=== PATIENT | male | born 1960 | race Caucasian/White ===

== ENCOUNTER 2016-05-23 19:45 | Outpatient (CLI) | payer OTHER ==
[~2016-05-23 19:45] MED LIST: ATOR20TA66 PO; LISI20TA PO
--- OUTSIDE RECORDS SUMMARY | 2016-05-23 19:52 | XMS REPORT | Continuity of Care Document ---
Author Author [facility] Organization [facility] Address Unknown Phone Unavailable Allergies Active Description Code Type Severity Reaction Onset Reported/Identified Relationship to Patient Clinical Status Yes No Known Drug Allergies [id number] Drug Allergy Unknown N/ A 11/01/2010 Medications Problems Date Dx Coded Attending Type Code Diagnosis Diagnosed By 11/01/2010 Ot 569.89 11/01/2010 Ot V16.0 11/01/2010 Ot V67.09 04/17/2013 BHARATH SERRANO DO Ot 327.23 OBSTRUCTIVE SLEEP APNEA (ADULT) (PEDIATR 04/17/2013 BHARATH SERRANO DO Ot 327.51 PERIODIC LIMB MOVEMENT DISORDER 04/17/2013 BHARATH SERRANO DO Ot 401.9 HYPERTENSION NOS 04/24/2014 YESIKA MARIANO, SEAN Hanson Ot V16.0 FAMILY HX-GI MALIGNANCY 04/24/2014 YESIKA MARIANO, SEAN Hanson Ot V76.51 SCREEN MAL NEOP-COLON 04/11/2015 SEAN NAPOLES MD Ot V72.84 04/11/2015 SEAN NAPOLES MD Ot V72.84 04/25/2016 SEAN NAPOLES MD Ot V72.84 EXAM PRE-OPERATIVE NOS Procedures Results Encounters ACCT No. Visit Date/Time Discharge Status Pt. Type Provider Facility Loc./Unit Complaint [id number] 04/24/2014 07:29:00 2014 10:15:00 DIS Outpatient SEAN NAPOLES MD [facility] SDC SCREENING [id number] 04/22/2014 05:52:00 2014 23:59:59 CLS Outpatient SEAN NAPOLES MD [facility] PREOP SCREENING [id number] 04/16/2013 19:53:00 2013 04:40:00 DIS Outpatient BHARATH SERRANO DO [facility] SLEEP OA,SNORING,CHOKING,GASPING,HTN,EDS [id number] 11/01/2010 08:03:00 Document Registration
== END 2016-05-24 05:05 | disposition home or self-care (01) ==
LOC: SLEEP 19:45
PROVIDERS: ATTEND Internal Medicine Critical Care Medicine
DX: G47.30 Sleep apnea, unspecified (principal); R06.83 Snoring; I10 Essential (primary) hypertension; R05 Cough
CPT/HCPCS: 95811

== ENCOUNTER 2019-04-14 08:54 | Outpatient (CLI) | payer BC ==
[~2019-04-14] VITALS: Ht 177 cm; Wt 97.5 kg
[2019-04-14] MEDS ORDERED: ATOR40TA70 PO (09:05)
[2019-04-14 09:08] VITALS: BP 145/88
[2019-04-14 09:36] LABS: BASOPHILS % (AUTO) 1 % (0-10); EOSINOPHILS # (AUTO) 0.1 10^3/uL (0.0-0.3); EOSINOPHILS % (AUTO) 3 % (0-10); HEMATOCRIT 46 % (40-54); HEMOGLOBIN 14.7 G/DL (13.3-17.7); LYMPHOCYTES # (AUTO) 1.1 X 10^3 (1.0-4.0); LYMPHOCYTES % (AUTO) 27 % (12-44); MEAN CORPUSCULAR HEMOGLOBIN 30 PG (25-34); MEAN CORPUSCULAR HGB CONC 32 G/DL (32-36); MEAN CORPUSCULAR VOLUME 93 FL (80-99); MEAN PLATELET VOLUME 11.9 FL (7.4-10.4); MONOCYTES # (AUTO) 0.4 X 10^3 (0.0-1.0); MONOCYTES % (AUTO) 9 % (0-12); NEUTROPHILS # (AUTO) 2.6 X 10^3 (1.8-7.8); NEUTROPHILS % (AUTO) 61 % (42-75); PLATELET COUNT 127 10^3/uL (130-400); RED CELL DISTRIBUTION WIDTH 14.8 % (10.0-14.5); WHITE BLOOD COUNT 4.2 10^3/uL (4.3-11.0)
[2019-04-14 09:38] LABS: BILIRUBIN,URINE NEGATIVE (NEGATIVE); CLARITY,URINE CLEAR; COLOR,URINE YELLOW; GLUCOSE, URINE (UA) NEGATIVE (NEGATIVE); KETONES,URINE NEGATIVE (NEGATIVE); LEUKOCYTE ESTERASE ,URINE NEGATIVE (NEGATIVE); NITRITE,URINE NEGATIVE (NEGATIVE); PH,URINE 5.5 (5-9); PROTEIN,URINE NEGATIVE (NEGATIVE)
[2019-04-14 09:44] LABS: BACTERIA,URINE NEGATIVE /HPF; SQUAMOUS EPITHELIAL CELL,UR RARE /HPF
[2019-04-14 09:48] LABS: PROTHROMBIN TIME PATIENT 13.3 SEC (12.2-14.7)
[2019-04-14 09:53] LABS: CALCIUM 9.3 MG/DL (8.5-10.1); CREATININE SERUM 1.38 MG/DL (0.60-1.30)
--- NOTE | 2019-04-14 09:57 | Diagnostic Imaging Report ---
INDICATION: Preoperative for left knee arthroplasty. TIME OF EXAM: 9:38 AM No prior studies are available for comparison. FINDINGS: The heart size is normal. The pulmonary vascularity is unremarkable. The lungs are clear. No infiltrate, effusion or pneumothorax is detected. IMPRESSION: No acute cardiopulmonary process is detected. Dictated by: Dictated on workstation # [id number]
== END 2019-04-14 10:27 | disposition home or self-care (01) ==
LOC: PREOP 08:54
PROVIDERS: ATTEND Orthopaedic Surgery
DX: Z01.818 Encounter for other preprocedural examination (principal); M17.12 Unilateral primary osteoarthritis, left knee
CPT/HCPCS: 36415; 71046; 80048; 81000; 85025; 85610; 86850; 86900; 86901; 87081; 93005

== ENCOUNTER 2019-06-13 10:05 | Outpatient (RCR) | payer BC ==
[~2019-06-13 10:05] MED LIST changes: +ASPI325T32 PO; +ATOR40TA70 PO; +FLUT9.9S NS; +IBUP-30 PO; +MAGN400O7 PO; +NAPR220T66 PO; +OXYC1TAB12 PO
== END 2019-06-13 13:26 | disposition home or self-care (01) ==
PROVIDERS: ATTEND Orthopaedic Surgery
DX: Z47.1 Aftercare following joint replacement surgery (principal); Z96.652 Presence of left artificial knee joint

== ENCOUNTER 2019-10-27 08:10 | Outpatient (RCR) | payer BC ==
[~2019-10-27] VITALS: Ht 177 cm; Wt 100.0 kg
[2019-10-27] MEDS ORDERED: CETI10TA17 PO ×2 (08:39)
== END 2019-10-27 14:24 | disposition home or self-care (01) ==
LOC: PREOP 08:10
PROVIDERS: ATTEND Internal Medicine
DX: Z01.812 Encounter for preprocedural laboratory examination (principal); Z12.11 Encounter for screening for malignant neoplasm of colon; Z20.828 Contact with and (suspected) exposure to other viral communicable diseases
CPT/HCPCS: 87635

== ENCOUNTER 2019-10-31 10:15 | Day surgery (SDC) | payer BC ==
--- NOTE | 2019-10-20 08:31 | HISTORY AND PHYSICAL ---
DATE OF SERVICE: COLONOSCOPY HISTORY AND PHYSICAL DATE OF ADMISSION: 10/31/2019. HISTORY OF PRESENT ILLNESS: The patient is a 59-year-old white male seen for yearly wellness evaluation on 10/15/2019. He reports that he has been feeling relatively well. He had left total knee replacement due to arthritis. Reports that left knee is fine. He has been having some right ankle pain, gets a little bit worse with walking, but he is continuing, albeit at a slower pace to get in 12,000 to 13,000 steps in. It is lateral right ankle pain. He has a past history of colon polyps. His last colonoscopy was done in 2014 in April. He had no polyps on that colonoscopy, but there is a family history of colon cancer index case being his grandmother diagnosed in her early 70s. He denies any bowel habit change and has noted no bright red blood per rectum or melena. PAST MEDICAL HISTORY: Significant for hypertension and obstructive sleep apnea as well as osteoarthritis. He has no known history of coronary artery disease. FAMILY HISTORY: Father in his early 80s of complications of vascular disease. Mother living with hypertension in her early 80s. She also has hyperlipidemia and grandmother with colon cancer diagnosed in her 70s. SOCIAL HISTORY: He is employed at [employer], , with adult children, with no past smoking or drinking history. He walks on a regular basis, 5 to 6 miles per day. PHYSICAL EXAMINATION: GENERAL: Reveals a well-appearing white male in no acute distress. VITAL SIGNS: Weight was up 6 pounds to 222.2 and blood pressure 140/70. CHEST: Clear. CARDIOVASCULAR: Reveals a regular rate and rhythm without murmur, S3 or S4. EXTREMITIES: Reveal no cyanosis, clubbing or edema. He has some right lateral joint line ankle pain location, minimal not to palpation. No warmth or erythema is noted. ASSESSMENT AND PLAN: 1. The patient is set up for screening colonoscopy on 10/30. Preop instructions and Suprep kit were given and questions were answered. 2. Hypertension, under good control. 3. Right ankle pain, possible arthritis related, ibuprofen prior to walks. If it is getting worse, he is advised to follow up with Dr. Maier, orthopedic commissioning specialist. I will see him back in 6 months. Job ID: [id number] DocumentID: [id number] Dictated Date: 10/15/2019 16:13:06 Campus Ambassador Date: 10/15/2019 16:41:13 Dictated By: SEAN NAPOLES MD
[2019-10-31] VITALS (11 sets, daily range): BP systolic 102–161; BP diastolic 55–73
[~2019-10-31] VITALS: Ht 177 cm; Wt 100.0 kg
--- NOTE | 2019-10-31 09:56 | Pre-Op Note & Conscious Sedat ---
Pre-Operative Progress Note H&P Reviewed The H&P was reviewed, patient examined and no changes noted. Date H&P Reviewed: Oct 31, 2019 Time H&P Reviewed: 09:30 Conscious Sedation Pre-Proced ASA Score 2 For ASA 3 and 4: Consider anesthesia and medical clearance. Also, for patients with a history of failed moderate sedation consider anesthesia. Airway Lungs Heart ASA score ASA 1: a normal healthy patient ASA 2: a patient with a mild systemic disease (mid diabetes, controlled hypertension, obesity ASA 3: a patient with a severe systemic disease that limits activity (angina, COPD, prior Myocardial infarction) ASA 4: a patient with an incapacitating disease that is a constant threat to life (CHF, renal failure) ASA 5: a moribund patient not expected to survive 24 hrs. (ruptured aneurysm) ASA 6: a declared brain- patient whose organs are being harvested. For emergent operations, add the letter E after the classification Mallampati Classification Grade 3 Sedation Plan Analgesia, Amnesia, Plan communicated to team members, Discussed options with patient/fam, Discussed risks with patient/fam The patient is an appropriate candidate to undergo the planned procedure, sedation, and anesthesia. The patient immediately re-assessed prior to indication. SEAN NAPOLES MD Oct 31, 2019 09:56
[~2019-10-31 10:15] MED LIST changes: +CETI10TA17 PO; +D5 LR IV SOLUTION 1,000 ML IV ONE; +D5 LR IV SOLUTION 1,000 ML IV STA; +LIDOCAINE JELLY 2% 6 ML SYRINGE MM PRN; +LIDOCAINE JELLY 2% 6 ML SYRINGE ONE; +MIDAZOLAM 5 MG/5 ML (VERSED) VIAL IV PRN; +MIDAZOLAM 5 MG/5 ML (VERSED) VIAL ONE; +SIMETHICONE 40 MG/0.6 ML (MYLICON DROPS) 30 ML BTL ONE; +SIMETHICONE 40 MG/0.6 ML (MYLICON DROPS) 30 ML BTL PO PRN; +fentaNYL INJECTION 100 MCG/2 ML AMP IVP ONE; +fentaNYL INJECTION 100 MCG/2 ML AMP ONE
--- NOTE | 2019-10-31 17:09 | OPERATIVE REPORT ---
DATE OF SERVICE: COLONOSCOPY SUMMARY INDICATION FOR THE PROCEDURE: Screening, family history for colon cancer. DESCRIPTION OF PROCEDURE: The patient was placed in the left lateral decubitus position. Prior to undergoing colonoscopy, digital rectal evaluation was performed. Anal sphincter tone was normal. Perianal reflexes intact. Prostate is normal in size, anodular, nontender to digital inspection. No abnormalities were noted on digital inspection of the anal canal or distal rectal vault. The colonoscope was then inserted into the rectum and under direct visualization advanced to the cecum. The cecum was identified by identification of the ileocecal valve and the cecal strap. Photographic documentation was obtained. Careful inspection was made as the colonoscope was withdrawn. Quality of prep was good. FINDINGS: There was no evidence for internal or external hemorrhoids and the rectum was unremarkable. Present in the rectosigmoid junction was a diminutive hyperplastic-appearing polyp, was biopsied and ablated using hot forceps. The sigmoid colon, descending colon, splenic flexure, transverse colon, hepatic flexure, ascending colon and cecum were unremarkable. ASSESSMENT: One diminutive hyperplastic appearing polyp was removed via hot forceps from the rectosigmoid junction. This was otherwise normal colonoscopy to the cecum. Considering family history, we will be advocating repeat surveillance colonoscopy in 5 years. Job ID: [id number] DocumentID: [id number] Dictated Date: 10/31/2019 11:57:39 Dishwashing Machine Operator Date: 10/31/2019 17:08:18 Dictated By: SEAN NAPOLES MD
--- OUTSIDE RECORDS SUMMARY | 2019-10-31 17:27 | XMS REPORT ---
Author Author [employer] glove examiner [employer] [facility] [place] [employer] [facility] [employer] Address [address] [place] [address] Care Team Providers Care Proofer Prepress Name Role Phone SEAN NAPOLES Unavailable SEAN NAPOLES MD Unavailable Unavailable BHARATH SERRANO DO Unavailable Unavailable RAY SANTO DO Unavailable Unavailable RAY SANTO DO Unavailable Unavailable SEAN NAPOLES MD Unavailable Unavailable BHARATH SERRANO DO Unavailable Unavailable Unavailable Unavailable Unavailable Unavailable Allergies The data below is from unstructured sources Allergen Type Severity Reaction Status Last Updated No Known Drug Allergies Active 11/01/10 Encounters Encounter Date Encounter Type Encounter Diagnosis Care Provider Facility Start: Patient encounter SEAN NAPOLES MD [facility] 10-31-2019 [facility] Start: Patient encounter SEAN NAPOLES MD [facility] 10-27-2019 [facility] End: 10-27-2019 Start: Patient encounter SEAN NAPOLES MD [facility] 10-23-2019 [facility] Start: Patient encounter RAY SANTO DO [facility]06-13-2019 [facility] End: 06-13-2019 Start: Patient encounter RAY SANTO DO [facility] 06-11-2019 [facility] Start: Patient encounter RAY SANTO DO [facility] 06-09-2019 [facility] Start: Patient encounter RAY SANTO DO [facility] 06-06-2019 [facility] Start: Patient encounter RAY SANTO DO [facility] 06-04-2019 [facility] Start: Patient encounter RAY SANTO DO [facility] 06-02-2019 [facility] Start: Patient encounter RAY SANTO DO [facility] 05-30-2019 [facility] Start: Patient encounter RAY SANTO DO [facility] 05-28-2019 procedure [facility] Start: Patient encounter RAY SANTO DO [facility] 05-26-2019 procedure [facility] Start: Patient encounter RAY SANTO DO [facility] 05-23-2019 procedure [facility] Start: Patient encounter RAY SANTO DO [facility] 05-21-2019 procedure [facility] Start: Patient encounter RAY SANTO DO [facility] 05-19-2019 procedure [facility] Start: Patient encounter RAY SANTO DO [facility] 05-16-2019 procedure [facility] Start: Patient encounter RAY SANTO DO [facility] 05-14-2019 procedure [facility] Start: Patient encounter RAY SATNO DO [facility] 05-12-2019 procedure [facility] Start: Evaluation and RAY SANTO DO [facility] 04-22-2019 management of [facility] inpatient End: 04-24-2019 Start: Patient encounter RAY SANTO DO [facility] 04-22-2019 procedure [facility] End: 04-24-2019 Start: Patient encounter RAY SANTO DO [facility] 04-14-2019 procedure [facility] ([id number]) End: 04-14-2019 Start: Patient encounter BHARATH SERRANO DO [facility] 05-23-2016 procedure [facility] End: 05-24-2016 Start: Patient encounter SEAN NAPOLES MD [facility] ([id number]) 04-24-2014 procedure End: 04-24-2014 Start: Patient encounter BHARATH SERRANO DO [facility] ([id number]) 04-16-2013 procedure End: 04-17-2013 EXAM PRE-OPERATIVE Pre-operative SEAN NAPOLES MD [facility] ([id number]) NOS examination, unspecified Medical Equipment No Information Goals No Information Immunizations The data below is from unstructured sourcesNo immunization records.No immunization records.No immunization records. Interventions No Information Medications No Information Payers No Information Plan of Treatment The data below is from unstructured sources Discharge Date 05/24/16 5:05am Prescriptions See Medication Section No plan of care. Problems Problem Problem Date Last Documented Episodic/Chr Provider Classificati Recorded Date onic on Disorders of Hyperlipidemia, unspecified 10-31-2019 Chronic RAY lipid HANSA DO metabolism (10 sources) Essential Unspecified essential hypertension 10-31-2019 Flow Floor Attendant debbi BHARATH SERRANO hypertension ; Translations: [Essential DO (18 sources) (primary) hypertension] Osteoarthrit Unilateral primary osteoarthritis, 10-31-2019 Chr onic RAY is left knee HANSA DO (10 sources) Other Aftercare following joint Chronic RO PATIENCE aftercare replacement surgery HANSA DO (1 source) Other Presence of left artificial knee Chronic RAY connective joint HANSA DO tissue disease (15 sources) Other lower Cough 10-31-2019 Episodic BHARATH MAGGIE respiratory DO disease (5 sources) Other lower Snoring 10-31-2019 Episodic BHARATH MAGGIE respiratory DO disease (5 sources) Other Special screening for malignant Episodic SEAN NAPOLES screening neoplasms of colon MD for suspected conditions (not mental disorders or infectious disease) (3 sources) Residual Periodic limb movement disorder ; Chronic BHARATH MAGGIE codes; Translations: [PERIODIC LIMB DO unclassified MOVEMENT DISORDER] (5 sources) Residual Sleep apnea, unspecified 10-31-2019 Chronic J ASON MAGGIE codes; DO unclassified (5 sources) Residual Obstructive sleep apnea (adult) 10-31-2019 Chronic RAY codes; (pediatric) HANSA DO unclassified (10 sources) Residual Family history of malignant Episodic SEAN NAPOLES codes; neoplasm of gastrointestinal tract MD unclassified (3 sources) Procedures Date Procedure Procedure Detail Performing Cl inician Start: REPLACE OF L KNEE RAY HANSA DO 04-22-2019 JT WITH SYNTH SUB, ELFEGO Results The data below is from unstructured sourcesNo known relevant diagnostic tests, laboratory data and/or discharge summary.No known relevant diagnostic tests, laboratory data and/or discharge summary.No known relevant diagnostic tests, laboratory data and/or discharge summary. Social History No Information Vital Signs The data below is from unstructured sources Vital Response Date/Time Temperature (Fahrenheit) 96.7 degree s F (97.6 - 99.5) Temperature (Calculated Celsius) 35. 50903 degrees C (36.4 - 37.5) Temperature Source Tympanic Pulse Rate (adult) 61 bpm (60 - 90) Respiratory Rate 18 bpm (12 - 24) O2 Sat by Pulse Oximetry 100 % (88 - 100) Blood Pressure 124/84 mm Hg Pain Pain Intensity 0 Height (Feet) 5 feet Height (Inches) 10.00 inches Height (Calculated Centimeters) 177. 712482 cm Weight (Pounds) 180 pounds Weight (Calculated Grams) 55838.627 gm Weight (Calculated Kilograms) 81.646 627 kilograms Height 5 ft 10 in Weight 180 lb Body Mass Index 25.8 kg/m^2 Functional Status The data below is from unstructured sourcesNo functional status results.No functional status results.No functional status results. Mental Status No Information Advance Directives Directive Response Recor ded Date/Time Advance Directives No 11:18am Health Care Power of Vocational Training Teacher No 04/24/14 11:18am Organ Donor Yes 04/24/14 11:18am Directive Response Recor ded Date/Time Advance Directives No 11:18am Health Care Power of Vocational Training Teacher No 04/24/14 11:18am Organ Donor Yes 04/24/14 11:18am Resuscitation Status Full Code 04/24/14 11:18am Discharge Instructions No hospital discharge instructions.No hospital discharge instructions. Additional Source Comments This clinical document has been generated using [employer] software that has been certified by the Office of the National Coordinator for Health Information Technology (ONC 15.99.04.3023.Diam.31.00.0.271539) and the National Committee for Driver Education Instructor (NCQA, as an eMeasure certified technology). FOR RECORDS PERTAINING TO PATIENTS WHO ARE OR HAVE BEEN ENROLLED IN A CHEMICAL D EPENDENCY/SUBSTANCE ABUSE PROGRAM, SOME INFORMATION MAY BE OMITTED. This clinica l summary was aggregated from multiple sources. Caution should be exercised in using it in the provision of clinical care. This summary normalizes information from multiple sources, and as a consequence, information in this document may ma terially change the coding, format and clinical context of patient data. In georgi tion, data may be omitted in some cases. CLINICAL DECISIONS SHOULD BE BASED ON T HE PRIMARY CLINICAL RECORDS. [employer] provides no warranty or guara ntee of the accuracy or completeness of information in this document.The followi ng information is based on time limited clinical information
--- OUTSIDE RECORDS SUMMARY | 2019-10-31 17:27 | XMS REPORT | Continuity of Care Document ---
Author Organization Unknown Address Unknown Phone Unavailable Allergies Active Description Code Type Severity Reaction Onset Reported/Identified Relationship to Patient Clinical Status Yes No Known Drug Allergies [id number] Drug Allergy Unknown N/A 10/27/2019 Medications There is no data. Problems Date Dx Coded Attending Type Code Diagnosis Diagnosed By 03/01/1325 RAY SANTO DO Ot Z47.1 AFTERCARE FOLLOWING JOINT REPLACEMENT TAVARES 03/01/1325 RAY SANTO DO Ot Z96.652 PRESENCE OF LEFT ARTIFICIAL KNEE JOINT 11/01/2010 Ot 569.89 11/01/2010 Ot V16.0 11/01/2010 Ot V67.09 04/17/2013 BHARATH SERRANO DO Ot 327. 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 9 HYPERTENSION NOS 04/24/2014 YESIKA MARIANO, SEAN Hanson Ot V16. 0 FAMILY HX-GI MALIGNANCY 04/24/2014 YESIKA MARIANO, SEAN Hanson Ot V76. 51 SCREEN MAL NEOP-COLON 04/11/2015 SEAN NAPOLES MD Ot V72. 84 04/11/2015 SEAN NAPOLES MD Ot V72. 84 04/25/2016 SEAN NAPOLES MD Ot V72. 84 EXAM PRE-OPERATIVE NOS 05/23/2016 SEAN NAPOLES MD Ot V72. 84 EXAM PRE-OPERATIVE NOS 05/24/2016 BHARATH SERRANO DO Ot G47. 30 SLEEP APNEA, UNSPECIFIED 05/24/2016 BHARATH SERRANO DO Ot I10 ESSENTIAL (PRIMARY) HYPERTENSION 05/24/2016 BHARATH SERRANO DO Ot R05 COUGH 05/24/2016 BHARATH SERRANO DO Ot R06. 83 SNORING 05/24/2016 BHARATH SERRANO DO Ot G47. 30 SLEEP APNEA, UNSPECIFIED 05/24/2016 BHARATH SERRANO DO Ot I10 ESSENTIAL (PRIMARY) HYPERTENSION 05/24/2016 BHARATH SERRANO DO Ot R05 COUGH 05/24/2016 BHARATH SERRANO DO Ot R06. 83 SNORING 06/13/2016 SEAN NAPOLES MD Ot V72. 84 EXAM PRE-OPERATIVE NOS 01/17/2017 SEAN NAPOLES MD Ot V72. 84 EXAM PRE-OPERATIVE NOS 04/14/2019 HANSA DO, RAY Lopez Ot M17.12 UNILATERAL PRIMARY OSTEOARTHRITIS, LEFT 04/14/2019 HANSA DO, RAY John Ot Z01.818 ENCOUNTER FOR OTHER PREPROCEDURAL EXAMIN 04/24/2019 HANSA DO, RAY John Ot E78.5 HYPERLIPIDEMIA, UNSPECIFIED 04/24/2019 HANSA DO, RAY Lopez Ot G47.33 OBSTRUCTIVE SLEEP APNEA (ADULT) (PEDIATR 04/24/2019 HANSA DO, RAY F Ot I 10 ESSENTIAL (PRIMARY) HYPERTENSION 04/24/2019 HANSA DO, RAY Lopez Ot M17.12 UNILATERAL PRIMARY OSTEOARTHRITIS, LEFT 05/23/2019 HANSA DO, RAY Lopez Ot Z96.652 PRESENCE OF LEFT ARTIFICIAL KNEE JOINT 06/13/2019 HANSA DO, RAY Lopez Ot Z47.1 AFTERCARE FOLLOWING JOINT REPLACEMENT TAVARES 06/13/2019 HANSA DO, RAY F Ot Z96.652 PRESENCE OF LEFT ARTIFICIAL KNEE JOINT Procedures Code Description Performed By Per barrett On [id number] RE PLACE OF L KNEE JT WITH SYNTH SUB, ELFEGO 04/22/2019 Results Test Result Range Complete blood count (CBC) with automate d white blood cell (WBC) differential - 04/14/19 09:20 Blood leukocytes automated count (number/volume) 4.2 10*3/uL 4.3-11.0 Blood erythrocytes automated count (number/volume) 4.91 10*6/uL 4.35-5.85 Venous blood hemoglobin measurement (mass/volume) 14.7 g/dL 13.3-17.7 Blood hematocrit (volume fraction) 46 % 40-54 Automated erythrocyte mean corpuscular volume 93 [ foz_us] 80-99 Automated erythrocyte mean corpuscular h emoglobin (mass per erythrocyte) 30 pg 25-34 Automated erythrocyte mean corpuscular h emoglobin concentration measurement (mass/volume) 32 g/dL 32-36 Automated erythrocyte distribution width ratio 14. 8 % 10.0- 14.5 Automated blood platelet count (count/volume) 127 10*3/uL 130-400 Automated blood platelet mean volume measurement 11.9 [foz_us] 7.4-10.4 Automated blood neutrophils/100 leukocytes 61 % 42-75 Automated blood lymphocytes/100 leukocytes 27 % 12-44 Blood monocytes/100 leukocytes 9 % 0-12 Automated blood eosinophils/100 leukocytes 3 % 0-10 Automated blood basophils/100 leukocytes 1 % 0-10 Blood neutrophils automated count (number/volume) 2.6 10*3 1.8-7.8 Blood lymphocytes automated count (number/volume) 1.1 10*3 1.0-4.0 Blood monocytes automated count (number/volume) 0. 4 10*3 0.0-1.0 Automated eosinophil count 0.1 10*3/uL 0 .0-0.3 Automated blood basophil count (count/volume) 0.0 10*3/uL 0.0-0.1 PT panel in platelet poor plasma by coag ulation assay - 04/14/19 09:20 Prothrombin time (PT) in platelet poor plasma by coagu lation assay 13.3 s 12.2-14.7 INR in platelet poor plasma or blood by coagulation as say 1.0 0.8-1.4 Whole blood basic metabolic panel - 04/02 06/19 09:20 Serum or plasma sodium measurement (moles/volume) 141 mmol/L 135-145 Serum or plasma potassium measurement (moles/volume) 4.0 mmol/L 3.6-5.0 Serum or plasma chloride measurement (moles/volume) 107 mmol/L 98-107 Carbon dioxide 23 mmol/L 21-32 Serum or plasma anion gap determination (moles/volume) 11 mmol/L 5-14 Serum or plasma urea nitrogen measurement (mass/volume ) 16 mg/dL 7-18 Serum or plasma creatinine measurement (mass/volume) 1.38 mg/dL 0.60-1.30 Serum or plasma urea nitrogen/creatinine mass ratio 12 NRG Serum or plasma creatinine measurement w ith calculation of estimated glomerular filtration rate 53 NRG Serum or plasma glucose measurement (mass/volume) 96 mg/dL 70-105 Serum or plasma calcium measurement (mass/volume) 9.3 mg/dL 8.5-10.1 Blood type T Indirect antibody screen pa pauline - 04/14/19 09:20 ABO+Rh group AP NRG Blood group antibody screen NEGATIVE NR G Methicillin resistant Staphylococcus aur eus (MRSA) screening culture - 04/14/19 09:20 Methicillin resistant Staphylococcus aureus (MRSA) scr eening culture NEG NRG Complete urinalysis with reflex to cultu re - 04/14/19 09:25 Urine color determination YELLOW NRG Urine clarity determination CLEAR NR G Urine pH measurement by test strip 5.5 5-9 Specific gravity of urine by test strip <= 1.016-1.022 Urine protein assay by test strip, semi-quantitative NEGATIVE NEGATIVE Urine glucose detection by automated test strip NE GATIVE NEGATIVE Erythrocytes detection in urine sediment by light micr oscopy NEGATIVE NEGATIVE Urine ketones detection by automated test strip NE GATIVE NEGATIVE Urine nitrite detection by test strip NEGATIVE NEGATIVE Urine total bilirubin detection by test strip NEGA TIVE NEGATIVE Urine urobilinogen measurement by automated test strip (mass/volume) 0.2 mg/dL < = 1.0 Urine leukocyte esterase detection by dipstick NEG ATIVE NEGATIVE Automated urine sediment erythrocyte cou nt by microscopy (number/high power field) NONE NRG Automated urine sediment leukocyte count by microscopy (number/high power field) NONE NRG Bacteria detection in urine sediment by light microsco py NEGATIVE NRG Squamous epithelial cells detection in u rine sediment by light microscopy RARE NRG Crystals detection in urine sediment by light microsco py NONE NRG Casts detection in urine sediment by light microscopy NONE NRG Mucus detection in urine sediment by light microscopy NEGATIVE NRG Complete urinalysis with reflex to culture NO NRG Blood type T Indirect antibody screen pa pauline - 04/22/19 08:50 WRISTBAND NUMBER [id number] NRG ABO+Rh group AP NRG Blood group antibody screen NEGATIVE NR G Automated blood complete blood count (he mogram) panel - 04/23/19 05:15 Blood leukocytes automated count (number/volume) 10.1 10*3/uL 4.3-11.0 Blood erythrocytes automated count (number/volume) 3.90 10*6/uL 4.35-5.85 Venous blood hemoglobin measurement (mass/volume) 11.9 g/dL 13.3-17.7 Blood hematocrit (volume fraction) 36 % 40-54 Automated erythrocyte mean corpuscular volume 93 [ foz_us] 80-99 Automated erythrocyte mean corpuscular h emoglobin (mass per erythrocyte) 31 pg 25-34 Automated erythrocyte mean corpuscular h emoglobin concentration measurement (mass/volume) 33 g/dL 32-36 Automated erythrocyte distribution width ratio 14. 4 % 10.0- 14.5 Automated blood platelet count (count/volume) 131 10*3/uL 130-400 Automated blood platelet mean volume measurement 11.9 [foz_us] 7.4-10.4 Whole blood basic metabolic panel - 04/03 05/22 05:15 Serum or plasma sodium measurement (moles/volume) 137 mmol/L 135-145 Serum or plasma potassium measurement (moles/volume) 4.5 mmol/L 3.6-5.0 Serum or plasma chloride measurement (moles/volume) 107 mmol/L 98-107 Carbon dioxide 20 mmol/L 21-32 Serum or plasma anion gap determination (moles/volume) 10 mmol/L 5-14 Serum or plasma urea nitrogen measurement (mass/volume ) 23 mg/dL 7-18 Serum or plasma creatinine measurement (mass/volume) 1.29 mg/dL 0.60-1.30 Serum or plasma urea nitrogen/creatinine mass ratio 18 NRG Serum or plasma creatinine measurement w ith calculation of estimated glomerular filtration rate 57 NRG Serum or plasma glucose measurement (mass/volume) 139 mg/dL 70-105 Serum or plasma calcium measurement (mass/volume) 8.1 mg/dL 8.5-10.1 Automated blood complete blood count (he mogram) panel - 04/24/19 05:45 Blood leukocytes automated count (number/volume) 6.0 10*3/uL 4.3-11.0 Blood erythrocytes automated count (number/volume) 3.66 10*6/uL 4.35-5.85 Venous blood hemoglobin measurement (mass/volume) 11.3 g/dL 13.3-17.7 Blood hematocrit (volume fraction) 35 % 40-54 Automated erythrocyte mean corpuscular volume 95 [ foz_us] 80-99 Automated erythrocyte mean corpuscular h emoglobin (mass per erythrocyte) 31 pg 25-34 Automated erythrocyte mean corpuscular h emoglobin concentration measurement (mass/volume) 33 g/dL 32-36 Automated erythrocyte distribution width ratio 14. 9 % 10.0- 14.5 Automated blood platelet count (count/volume) 101 10*3/uL 130-400 Automated blood platelet mean volume measurement 11.7 [foz_us] 7.4-10.4 Whole blood basic metabolic panel - 04/03 06/19 05:45 Serum or plasma sodium measurement (moles/volume) 141 mmol/L 135-145 Serum or plasma potassium measurement (moles/volume) 4.3 mmol/L 3.6-5.0 Serum or plasma chloride measurement (moles/volume) 110 mmol/L 98-107 Carbon dioxide 21 mmol/L 21-32 Serum or plasma anion gap determination (moles/volume) 10 mmol/L 5-14 Serum or plasma urea nitrogen measurement (mass/volume ) 20 mg/dL 7-18 Serum or plasma creatinine measurement (mass/volume) 1.10 mg/dL 0.60-1.30 Serum or plasma urea nitrogen/creatinine mass ratio 18 NRG Serum or plasma creatinine measurement w ith calculation of estimated glomerular filtration rate > NRG Serum or plasma glucose measurement (mass/volume) 94 mg/dL 70-105 Serum or plasma calcium measurement (mass/volume) 8.1 mg/dL 8.5-10.1 Encounters ACCT No. Visit Date/Time Discharge Status Pt. Type Provider Facility Loc./Unit Complaint [id number] 10/31/2019 10:15:00 11:30:00 DIS Outpatient SEAN NAPOLES MD [facility] ENDO SCREENING [id number] 10/27/2019 08:10:00 14:24:00 DIS Outpatient SEAN NAPOLES MD [facility] PREOP SCREENING [id number] 06/13/2019 10:05:00 13:26:00 DIS Outpatient RAY SANTO DO [facility] REHAB S/P LT TKA [id number] 04/22/2019 08:30:00 12:18:00 DIS Inpatient RAY SANTO DO [facility] 4TH LEFT KNEE OSTEOARTHRIT IS [id number] 04/14/2019 08:54:00 10:27:00 DIS Outpatient RAY SANTO DO [facility] PREOP LEFT KNEE OSTEO ARTHRITIS [id number] 05/23/2016 19:45:00 017 05:05:00 DIS Outpatient BHARATH SERRANO DO [facility] SLEEP SLEEP APNEA,SNORING,COUGH,HYPERTENSION [id number] 04/24/2014 07:29:00 015 10:15:00 DIS Outpatient SEAN NAPOLES MD [facility] SDC SCREENING [id number] 04/22/2014 05:52:00 015 23:59:59 CLS Outpatient SEAN NAPOLES MD [facility] PREOP SCREENING [id number] 04/16/2013 19:53:00 014 04:40:00 DIS Outpatient BHARATH SERRANO DO [facility] SLEEP OA,SNORING,CHOKING,GASPING,HTN,EDS [id number] 11/01/2010 08:03:00 Document Registration
== END 2019-10-31 11:30 | disposition home or self-care (01) ==
LOC: ENDO 10:15
PROVIDERS: ATTEND Internal Medicine
DX: Z12.11 Encounter for screening for malignant neoplasm of colon (principal); K62.1 Rectal polyp; I10 Essential (primary) hypertension; M19.90 Unspecified osteoarthritis, unspecified site; M25.571 Pain in right ankle and joints of right foot; G47.33 Obstructive sleep apnea (adult) (pediatric); Z80.0 Family history of malignant neoplasm of digestive organs; Z96.652 Presence of left artificial knee joint; Z86.010 Personal history of colon polyps

== ENCOUNTER 2022-08-10 05:33 | Outpatient (CLI) | payer BC ==
[~2022-08-10] VITALS: Ht 177.8 cm; Wt 104.5 kg
[~2022-08-10 05:33] MED LIST changes: -D5 LR IV SOLUTION 1,000 ML IV ONE; -D5 LR IV SOLUTION 1,000 ML IV STA; -LIDOCAINE JELLY 2% 6 ML SYRINGE MM PRN; -LIDOCAINE JELLY 2% 6 ML SYRINGE ONE; -MIDAZOLAM 5 MG/5 ML (VERSED) VIAL IV PRN; -MIDAZOLAM 5 MG/5 ML (VERSED) VIAL ONE; -SIMETHICONE 40 MG/0.6 ML (MYLICON DROPS) 30 ML BTL ONE; -SIMETHICONE 40 MG/0.6 ML (MYLICON DROPS) 30 ML BTL PO PRN; -fentaNYL INJECTION 100 MCG/2 ML AMP IVP ONE; -fentaNYL INJECTION 100 MCG/2 ML AMP ONE
[2022-08-10] MEDS ORDERED: LISI1TAB48 PO (15:56)
[2022-08-10] MEDS ORDERED: TUME1CAP PO (15:56)
== END 2022-08-10 16:04 | disposition home or self-care (01) ==
LOC: PREOP 05:33
PROVIDERS: ATTEND Specialist
DX: Z01.818 Encounter for other preprocedural examination (principal)

== ENCOUNTER 2022-08-18 06:03 | Day surgery (SDC) | payer BC ==
[~2022-08-18] VITALS: Ht 177.8 cm; Wt 104.5 kg
[~2022-08-18 06:03] MED LIST changes: +LISI1TAB48 PO; +TUME1CAP PO
[2022-08-18 06:15] VITALS: BP 141/80
[2022-08-18] MEDS ORDERED: MOXIFLOXACIN OPHTH SOLN 5 MG/ML 0.3 ML SYRINGE OP ONE (06:30)
[2022-08-18] MEDS ORDERED: POVIDONE (BETADINE) OPHTH SOLN 5% 30 ML OP ONE (06:30)
[2022-08-18] MEDS: TETRACAINE 0.5% OPHTH SOLN 4 ML BTL (SINGLE DOSE ONLY) OU PRN ×4 (06:30→06:48)
[2022-08-18] MEDS ORDERED: TIMOLOL 0.5% (CATARACTS) 0.3 ML BTL OU PRN (06:30)
[2022-08-18] MEDS: PHENYLEPHRINE 10% OPHTH (NEO-SYN) 5 ML BTL OU SCH ×3 (06:37→06:48)
[2022-08-18] MEDS: TROPICAMIDE 1% OPH SOLN (MYDRIACYL) 15 ML BTL OP SCH ×3 (06:37→06:48)
[2022-08-18] MEDS ORDERED: MIDAZOLAM 2 MG/2 ML (VERSED) VIAL ONE (07:02)
--- NOTE | 2022-08-18 07:15 | Ophthalmologist Pre-Op Note ---
Pre-Operative Progress Note H&P Reviewed The H&P was reviewed, patient examined and no changes noted. Date H&P Reviewed: August 18, 2022 Time H&P Reviewed: 07:15 Pre-Op Dx Cataract, Right Eye RHONDA ENGLISH MD August 18, 2022 07:15
--- NOTE | 2022-08-18 07:36 | Ophthalmology Operative Report ---
Cataract removal/placement IOL PREOPERATIVE DIAGNOSIS: Cataract Right Eye POSTOPERATIVE DIAGNOSIS: Cataract Right Eye PROCEDURE: Cataract removal and placement of posterior chamber implant, right eye SURGEON: Elliott English ANESTHESIA: Topical with sedation COMPLICATIONS: None ESTIMATED BLOOD LOSS: Minimal DESCRIPTION OF PROCEDURE: After proper informed consent was obtained, the patient, a 62 male, was taken to the Operating Room and the right eye was anesthetized with tetracaine. The right eye was then prepped and draped in the usual manner. A wire lid speculum was placed. A paracentesis was made at the left hand position. Preservative free lidocaine was injected into the anterior chamber followed by viscoelastic. A clear corneal incision was made in the temporal position. A capsulorrhexis was preformed and the central nuclear and cortical material were removed. The posterior capsule was polished and Kendall [id number] 20.0 IOL was placed into the capsular bag. The residual viscoelastic was aspirated and balanced saline solution was injected into the anterior chamber. Moxifloxacin was injected into the anterior chamber. The wound was checked and found to be water tight. The patient tolerated the procedure well without complications. ELLIOTT ENGLISH MD August 18, 2022 07:36
[2022-08-18 07:40] VITALS: BP 141/79
[2022-08-18] MEDS ORDERED: acetaZOLAMIDE ER 500 MG CAP (DIAMOX SEQUELS) PO ONE (09:15)
--- NOTE | 2022-08-18 12:20 | Anesthesia-General Post-Op ---
MAC Patient Condition Mental Status/LOC: Same as Preop Cardiovascular: Satisfactory Nausea/Vomiting: Absent Respiratory: Satisfactory Pain: Controlled Complications: Absent Post Op Complications Complications None Follow Up Care/Instructions Patient Instructions None needed. Anesthesiology Discharge Order Discharge Order Patient is doing well, no complaints, stable vital signs, no apparent adverse anesthesia problems. No complications reported per nursing. GILDA NEGRO CRNA August 18, 2022 12:20
== END 2022-08-18 07:40 | disposition home or self-care (01) ==
LOC: SDC 06:03
PROVIDERS: ATTEND Specialist
DX: H25.9 Unspecified age-related cataract (principal)
CPT/HCPCS: 66984; V2632

== ENCOUNTER 2022-08-29 05:30 | Outpatient (CLI) | payer BC | END 2022-08-29 14:57 | disposition home or self-care (01) | LOC: PREOP 05:30 | PROVIDERS: ATTEND Specialist | DX: Z01.818 Encounter for other preprocedural examination (principal) ==

== ENCOUNTER 2022-09-01 06:04 | Day surgery (SDC) | payer BC ==
[~2022-09-01] VITALS: Ht 177.8 cm; Wt 104.5 kg
[2022-09-01 06:22] VITALS: BP 127/83
[2022-09-01] MEDS: TETRACAINE 0.5% OPHTH SOLN 4 ML BTL (SINGLE DOSE ONLY) OU PRN ×4 (06:23→06:37)
[2022-09-01] MEDS: TROPICAMIDE 1% OPH SOLN (MYDRIACYL) 15 ML BTL OP SCH ×3 (06:27→06:38)
[2022-09-01] MEDS: PHENYLEPHRINE 10% OPHTH (NEO-SYN) 5 ML BTL OU SCH ×3 (06:27→06:38)
[2022-09-01] MEDS ORDERED: TIMOLOL 0.5% (CATARACTS) 0.3 ML BTL OU PRN (06:30)
[2022-09-01] MEDS ORDERED: POVIDONE (BETADINE) OPHTH SOLN 5% 30 ML OP ONE (06:30)
[2022-09-01] MEDS ORDERED: MOXIFLOXACIN OPHTH SOLN 5 MG/ML 0.3 ML SYRINGE OP ONE (06:30)
--- NOTE | 2022-09-01 07:01 | Ophthalmologist Pre-Op Note ---
Pre-Operative Progress Note H&P Reviewed The H&P was reviewed, patient examined and no changes noted. Date H&P Reviewed: Sep 01, 2022 Time H&P Reviewed: 07:00 Pre-Op Dx Cataract, Left Eye RHONDA ENGLISH MD Sep 01, 2022 07:00
[2022-09-01] MEDS ORDERED: MIDAZOLAM 2 MG/2 ML (VERSED) VIAL ONE (07:13)
[2022-09-01 07:50] VITALS: BP_SYST 127; BP_SYST 135; BP_DIAS 83; BP_DIAS 88
--- NOTE | 2022-09-01 07:50 | Ophthalmology Operative Report ---
Cataract removal/placement IOL PREOPERATIVE DIAGNOSIS: Cataract Left Eye POSTOPERATIVE DIAGNOSIS: Cataract Left Eye PROCEDURE: Cataract removal and placement of posterior chamber implant, left eye SURGEON: Elliott English ANESTHESIA: Topical with sedation COMPLICATIONS: None ESTIMATED BLOOD LOSS: Minimal DESCRIPTION OF PROCEDURE: After proper informed consent was obtained, the patient, a 62 male, was taken to the Operating Room and the left eye was anesthetized with tetracaine. The left eye was then prepped and draped in the usual manner. A wire lid speculum was placed. A paracentesis was made at the left hand position. Preservative free lidocaine was injected into the anterior chamber followed by viscoelastic. A clear corneal incision was made in the temporal position. A capsulorrhexis was preformed and the central nuclear and cortical material were removed. The posterior capsule was polished and an Kendall [id number] was placed into the capsular bag. The residual viscoelastic was aspirated and balanced saline solution was injected into the anterior chamber. Moxifloxacin was injected into the anterior chamber. The wound was checked and found to be water tight. The patient tolerated the procedure well without complications. ELLIOTT ENGLISH MD Sep 01, 2022 07:50
[2022-09-01] MEDS ORDERED: acetaZOLAMIDE ER 500 MG CAP (DIAMOX SEQUELS) PO ONE (09:15)
--- NOTE | 2022-09-01 13:21 | Anesthesia-General Post-Op ---
MAC Patient Condition Mental Status/LOC: Same as Preop Cardiovascular: Satisfactory Nausea/Vomiting: Absent Respiratory: Satisfactory Pain: Controlled Complications: Absent Post Op Complications Complications None Follow Up Care/Instructions Patient Instructions None needed. Anesthesiology Discharge Order Discharge Order Patient is doing well, no complaints, stable vital signs, no apparent adverse anesthesia problems. No complications reported per nursing. NINA PAIZ CRNA Sep 01, 2022 13:21
== END 2022-09-01 07:52 | disposition home or self-care (01) ==
LOC: SDC 06:04
PROVIDERS: ATTEND Specialist
DX: H25.9 Unspecified age-related cataract (principal)
CPT/HCPCS: 66984; V2632